=== PATIENT | female | born 1990 | race Hispanic/Latino ===

== ENCOUNTER 2025-08-04 00:39 | Emergency (ER) | payer BC ==
[2025-08-04] MEDS ORDERED: Ondansetron PF 4 MG/2 ML Vial ONE (01:08)
[2025-08-04] MEDS ORDERED: diphenhydrAMINE 50 MG/ML VIAL ONE (01:08)
[2025-08-04] MEDS ORDERED: Metoclopramide HCl 10 MG (2 mL) VIAL ONE (01:08)
[2025-08-04 01:21] LABS: #Basophils 0.03 10x3/uL (0.0-0.2); #Eosinophils 0.03 10x3/uL (0.0-0.7); #Monocytes 0.70 10x3/uL (0.11-0.59); #Neutrophils 8.98 10x3/uL (1.40-6.50); %Basophils 0.3 % (0.0-1.0); %Eosinophils 0.3 % (0.0-10.0); %Lymphocytes 15.4 % (21.0-51.0); %Monocytes 6.1 % (0.0-10.0); %Neutrophils 77.6 % (42.0-75.0); Hematocrit 47.8 % (36.0-47.0); Hemoglobin 16.0 g/dL (12.0-16.0); Mean Corpuscular Hemoglobin 29.6 pg (27.0-31.0); Mean Corpuscular Volume 88.4 fL (78.0-98.0); Platelet Count 300 10x3/uL (130-400); Red Blood Cell (RBC) Count 5.41 mill/uL (4.20-5.40); White Blood Cell (WBC) Count 11.55 10x3/uL (4.8-10.8)
[2025-08-04 01:37] LABS: BHCG - Serum Negative (NEGATIVE); Pregs Control Background? CLEAR/WHITE (CLR/WHITE); Pregs Control Bar Appear? YES (CONTROL BAR)
[2025-08-04 01:40] LABS: ALT (SGPT) 19 U/L (Less than 34); AST (SGOT) 18 U/L (11-34); Albumin 4.7 g/dL (3.1-4.5); Alkaline Phosphatase 56 U/L (40-110); Anion Gap 18 mmol/L (10-20); BUN (Urea Nitrogen) 17 mg/dL (7.0-18.7); Bilirubin, Total 1.6 mg/dL (0.3-1.2); Calc. Creatinine Clearance 0 mL/min (70-130); Calcium 9.7 mg/dL (7.8-10.44); Carbon Dioxide 19 mmol/L (22-29); Chloride 102 mmol/L (98-107); Globulin 3.4 g/dL (2.4-3.5); Glucose 92 mg/dL (70-105); Lipase 18 U/L (8-78); Potassium 3.6 mmol/L (3.5-5.1); Sodium 135 mmol/L (136-145)
[2025-08-04] MEDS ORDERED: Iopamidol-370 76% 500 ML MDV (1 ML CHARGE) ONE (11:53)
== END 2025-08-04 02:55 | disposition home or self-care (01) ==
LOC: ERS 00:39
DX: R11.2 Nausea with vomiting, unspecified (principal); E86.0 Dehydration
CPT/HCPCS: 74177; 80053; 83690; 84703; 85025; 96361; 96374; J1200; J2405; J2765; Q9967